=== PATIENT | male | born 1955 | race Caucasian/White ===

== ENCOUNTER 2022-10-26 01:26 | Outpatient (CLI) | payer OTHER, SELFPAY | END 2022-10-26 01:27 | disposition home or self-care (01) | LOC: AMB 11-08 23:56 | PROVIDERS: PCP Family Medicine; Visit Provider Emergency Medicine | DX: I50.9 Heart failure, unspecified (principal); I49.9 Cardiac arrhythmia, unspecified | CPT/HCPCS: A0425; A0427; A0428 ==